=== PATIENT | female | born 1970 | race Asian ===

== ENCOUNTER 2018-03-05 17:17 | Emergency (ER) | payer SELFPAY ==
[~2018-03-05] VITALS: Ht 165.1 cm; Wt 73.0 kg
[2018-03-05 18:00] VITALS: BP 126/73
[2018-03-05] MEDS ORDERED: IBUPROFEN 400 MG TABLET PO ONE (18:30)
[2018-03-05] MEDS ORDERED: IBUPROFEN 400 MG TABLET ONE (18:46)
== END 2018-03-05 19:23 | disposition home or self-care (01) ==
LOC: ER 17:21
DX: S93.401A Sprain of unspecified ligament of right ankle, initial encounter (principal); Z98.890 Other specified postprocedural states; W01.0XXA Fall on same level from slipping, tripping and stumbling without subsequent striking against object, initial encounter; Y93.01 Activity, walking, marching and hiking; Y92.89 Other specified places as the place of occurrence of the external cause; Y99.8 Other external cause status
CPT/HCPCS: 73610; 99284; A4606; Z7610